=== PATIENT | male | born 1980 | race Caucasian/White ===

== ENCOUNTER 2019-06-22 15:12 | Emergency (ER) | payer OTHER, SELFPAY ==
[2018-08-01 10:20] VITALS: BMI 25.5
[2019-06-22 15:13] VITALS: BP 146/107; PULSE 74; RESP 16; TEMP 36.4; O2SAT 97; BMI 28.9
--- NOTE | 2019-06-22 15:19 | ED.RN ---
PT'S VICE PRESIDENT [employer]ERS[employer], ISIDRO TIPTON, STATES DRUG SCREENING IS NOT NECESSARY.
--- NOTE | 2019-06-22 16:03 | ED.DCSUM_ITS ---
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 He performed BLS before the ambulance crew arrived, he performed [id number] in the process, and CPR. He is here because of the exposure during the national coronavirus pandemic. He is healthy and asymptomatic. Past Medical History - Allergies and Home Meds Allergies/Adverse Reactions: Allergies No Known Allergies Allergy (Verified 06/22/19 15:13) Primary Care Physician: Ian Conti MD [Primary Care Provider] - Past Medical History: None Lives: With Family Smoking Status: Never smoker Review of Systems General: Denies: Chills, Fever, Sweats ENT: Reports: - - no mouth pain. Denies: Rhinorrhea, Sore throat Skin: Denies: Rash, Wounds Neurological: Denies: Headache, Weakness, Numbness Physical Exam Vital Signs/Narrative: Vital Signs Temp Pulse Resp BP Pulse Ox 06/22/19 15:13 97.6 F L 74 16 146/107 H 97 Inital Vital Signs reviewed: Yes General: Well nourished, Well developed, No Acute Distress Head: Normocephalic, Atraumatic Eyes: Perrl, EOMI ENT: Moist mucous membranes, No rhinorrhea, - - Oropharynx normal Neck: Supple Skin: Normal color, No rash, No Trauma Neurological: Alert, Oriented x3, Cranial nerves II-XII grossly intact, Normal Strength, Normal Sensation Psychological: Normal affect, Normal Mood Diagnostic/Tx/Re-eval - Medical Decision Making Initial exposure testing will be obtained, testing of the source patient will also be obtained including a COVID test. That is not indicated for this patient at this time. He will follow-up with scroll kit. 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 ED Disposition - Plan for ED Patient: Disposition: Home or Assisted Living Diagnosis: Patient exposure to body fluids Instructions: ED Body Fluid Exposure Not Healthcare Worker Referrals: Ian Conti MD [Primary Care Provider] - [facility] [GROUP OF PHYSICIANS] - 1-2 Weeks
[2019-06-22 16:27] VITALS: BP 144/97; PULSE 76; RESP 17; O2SAT 98
[2019-06-22 17:56] LABS: HIV - WCH Non-Reactive (Nonreactive); Hepatitis B Surface Antibody Reactive; Hepatitis B Surface Antigen Non-Reactive (Nonreactive); Hepatitis C Antibody Non-Reactive (Nonreactive)
== END 2019-06-22 16:31 | disposition home or self-care (01) ==
PROVIDERS: Emergency Provider Emergency Medicine; PCP Family Medicine
DX: Z77.21 Contact with and (suspected) exposure to potentially hazardous body fluids (principal)
CPT/HCPCS: 86703; 86706; 86803; 87340; 99282

== ENCOUNTER → 2019-06-27 12:57 | Outpatient (CLI) | payer OTHER, SELFPAY ==
[2019-06-22 15:13] VITALS: BMI 28.9
== END ==
PROVIDERS: Referring Provider Family Medicine; Visit Provider Family Medicine
DX: G47.10 Hypersomnia, unspecified (principal)
CPT/HCPCS: 95806

== ENCOUNTER → 2020-01-20 | Outpatient (CLI) | payer OTHER, SELFPAY | END | disposition home or self-care (01) | LOC: LABSPEC 10:11 | PROVIDERS: PCP Family Medicine; Referring Provider Family Medicine; Visit Provider Family Medicine | DX: U07.1 COVID-19 (principal) | CPT/HCPCS: 87635; C9803; U0003 ==

== ENCOUNTER → 2020-11-25 09:29 | Outpatient (CLI) | payer OTHER, SELFPAY ==
--- NOTE | 2020-11-25 09:33 | RAD_ITS ---
STUDY: X-RAY - LEFT KNEE REASON FOR EXAM: Male, 40 years old. Knee pain. TECHNIQUE: 4 view(s) of the knee. COMPARISON: None. FINDINGS: Normal visualized distal femur. Normal visualized proximal tibia and fibula. Normal proximal tibiofibular articulation. Normal medial femorotibial compartment. Normal lateral femorotibial compartment. Normal patellofemoral articulation. The soft tissue structures are unremarkable. RAD/Knee 4 or More Views IMPRESSION: Normal x-ray examination of the knee. Electronically Signed: Jonh Cardoza MD at 11:41 EDT , Service support ,
== END ==
PROVIDERS: PCP Family Medicine; Referring Provider Family Medicine; Visit Provider Family Medicine
DX: M67.52 Plica syndrome, left knee (principal)
CPT/HCPCS: 73564

== ENCOUNTER → 2021-07-28 | Outpatient (CLI) | payer OTHER, SELFPAY ==
[2021-07-28 17:48] LABS: ALB/GLOB Ratio 1.4 RATIO (0.9-2.4); AST(SGOT) 11 U/L (15-37); Alanine Aminotransfer ALT/SGPT 20 U/L (16-61); Alkaline Phosphatase 33 U/L (45-117); Anion Gap 6 (5-15); BUN 16 mg/dL (7-18); BUN/Creat Ratio 13.8 RATIO (10-20); Calcium,Total 8.9 mg/dL (8.5-10.1); Chloride 107 mmol/L (98-107); Creatinine, Serum 1.16 mg/dL (0.70-1.30); EST Glomerular Filtration Rate 74 mL/min (>60); Est Glom Filt Rate - Afr Amer 90 mL/min (>60); Globulin 2.9 g/dL (2.2-4.2); Glucose 112 mg/dL (74-106); Magnesium 2.1 mg/dL (1.6-2.6); Potassium 3.7 mmol/L (3.5-5.1); Protein, Total 6.9 g/dL (6.4-8.2); Sodium Level 142 mmol/L (136-145)
[2021-08-01 16:08] LABS: Endomysial Antibody IgA Negative (Negative)
[2021-08-01 17:15] LABS: Immunoglobulin A 148 mg/dL (90-386); t-Transglutaminase IgA <2 U/mL (0-3)
[2021-08-02 19:59] LABS: Fats, Neutral Normal (.); Fats, Total Normal (.)
== END | disposition home or self-care (01) ==
LOC: MFPLAB 14:34
PROVIDERS: PCP Family Medicine; Referring Provider Family Medicine; Visit Provider Family Medicine
DX: R19.7 Diarrhea, unspecified (principal)
CPT/HCPCS: 36415; 80053; 82705; 82784; 83516; 83630; 83735; 86255; 87177; 87209; 87493; 87506

== ENCOUNTER → 2022-08-01 | Outpatient (CLI) | payer OTHER, SELFPAY ==
[2022-08-01 18:08] LABS: Hematocrit 43.2 % (40-54); Hemoglobin 14.8 g/dL (13.0-16.5); Mean Corp Hgb Conc 34.3 g/dL (32-36); Mean Corpuscular Hgb 30.6 pg (27.0-32.0); Mean Corpuscular Volume 89.4 fL (80-94); Mean Platelet Vol. 9.5 fl (6.2-12.0); Platelet Count 277 K/mm3 (150-450); RBC Distribution Width CV 12.3 % (11.6-14.6); Red Blood Count 4.83 M/mm3 (4.6-6.2); White Blood Count 4.9 K/mm3 (4.4-11.0)
[2022-08-01 19:05] LABS: ALB/GLOB Ratio 1.3 RATIO (0.9-2.4); AST(SGOT) 17 U/L (15-37); Alanine Aminotransfer ALT/SGPT 19 U/L (16-61); Albumin, Serum 4.2 g/dL (3.2-5.0); Alkaline Phosphatase 33 U/L (45-117); Anion Gap 6 (5-15); BUN 16 mg/dL (7-18); Calcium,Total 8.9 mg/dL (8.5-10.1); Chloride 106 mmol/L (98-107); Cholesterol 194 mg/dL (200); EST Glomerular Filtration Rate 88 mL/min (>60); Est Glom Filt Rate - Afr Amer 106 mL/min (>60); Ferritin 110 ng/mL (26-388); Globulin 3.3 g/dL (2.2-4.2); Glucose 90 mg/dL (74-106); High Density Lipoprotein 62 mg/dL; Iron 105 ug/dL (65-175); Iron Binding Capacity,Total 335 ug/dL (250-450); PERCENT IRON SATURATION 31.3 % (15.0-55.0); Potassium 3.7 mmol/L (3.5-5.1); Protein, Total 7.5 g/dL (6.4-8.2); Sodium Level 139 mmol/L (136-145); Thyroid Stim Hormone (TSH) 1.08 uIU/mL (0.358-3.74); Triglycerides 61 mg/dL; Very Low Density Lipoprotein 12 mg/dL (5-40)
[2022-08-01 19:58] LABS: Vitamin B12 273 pg/mL (211-911); Vitamin D,25 Hydroxy 64.9 ng/mL
== END | disposition home or self-care (01) ==
LOC: MFPLAB 15:49
PROVIDERS: PCP Family Medicine; Visit Provider Physician Assistant
DX: R53.83 Other fatigue (principal); E66.9 Obesity, unspecified
CPT/HCPCS: 36415; 80053; 80061; 82306; 82607; 82728; 82746; 83525; 83540; 83550; 84443; 85027

== ENCOUNTER 2022-10-17 10:58 | Outpatient (CLI) | payer OTHER, SELFPAY ==
[2022-10-17 11:09] LABS: Bacteria 0 SEEN /hpf (None Seen); Mucous, Urine 0 SEEN /hpf (<or=2+); White Blood Cells 0 SEEN /hpf (0-5)
[2022-10-17 12:14] LABS: Color, Urine Yellow (Yellow); Glucose, Dipstick Normal (Normal); Ketone-Dipstick Negative (Negative); Leukocyte Esterase-Dipstick Negative /ul (Negative); Nitrite-Dipstick Negative (Negative); Occult Blood-Urine 25 /ul (Negative); Protein-Dipstick Negative (Negative); Urine Bilirubin Dipstick Negative (Negative); Urine Clarity Sl. Cloudy (Clear); Urine Urobilinogen Normal (Normal)
[2022-10-17 12:22] LABS: Red Blood Cells-Urine 0-5 SEEN /hpf (0-5); Squamous Epithelial Cells - UA 0-5 SEEN /hpf (0-5)
== END 2022-10-17 23:59 | disposition home or self-care (01) ==
LOC: LABSPEC 11:06
PROVIDERS: PCP Family Medicine; Visit Provider Family Medicine
DX: Z00.00 Encounter for general adult medical examination without abnormal findings (principal); R30.9 Painful micturition, unspecified; R36.1 Hematospermia
CPT/HCPCS: 81001; 87086; 87491; 87591

== ENCOUNTER 2022-10-20 10:12 | Outpatient (CLI) | payer OTHER, SELFPAY | END 2022-10-20 23:59 | disposition home or self-care (01) | PROVIDERS: PCP Family Medicine; Visit Provider Family Medicine | DX: N45.1 Epididymitis (principal); R36.1 Hematospermia | CPT/HCPCS: 87491; 87591 ==

== ENCOUNTER → 2022-10-26 | Outpatient (CLI) | payer OTHER, SELFPAY ==
--- NOTE | 2022-10-26 16:42 | RAD_ITS ---
INDICATION: sternoclavicular pain (left) EXAMINATION/TECHNIQUE: X-RAY - XR Sternoclavicular Joint(s) Min 3 Views 3 IMAGES COMPARISON: None. LIMITATIONS: None. FINDINGS: BONES: No fracture demonstrated. JOINTS: No dislocation. SOFT TISSUES: Unremarkable. RAD/S-C Jts Min 3 Views IMPRESSION: No acute findings. Electronically Signed: Niki Trujillo MD at 5:10 EDT ,
--- NOTE | 2022-10-26 16:45 | RAD_ITS ---
INDICATION: PAIN EXAMINATION/TECHNIQUE: X-RAY - XR Spine Cervical 4 or 5 Views COMPARISON: None. FINDINGS: The vertebral bodies are normal height. No definite fracture demonstrated. No subluxation. C1-C2 alignment is maintained. Mild disc space narrowing and posterior osteophytes C3-C6, most pronounced at C3-4. Mild bilateral neural foraminal encroachment at C3-C4 by posterior osteophytes. Prevertebral soft tissues appear unremarkable RAD/Cerv Spine 4 or 5 Views IMPRESSION: No evidence of fracture or subluxation. Degenerative discogenic disease with likely mild neural foraminal encroachment at C3-4. Electronically Signed: Niki Trujillo MD at 4:04 EDT ,
[2022-10-26 18:20] LABS: ALB/GLOB Ratio 1.2 RATIO (0.9-2.4); AST(SGOT) 13 U/L (15-37); Alanine Aminotransfer ALT/SGPT 23 U/L (16-61); Albumin, Serum 4.1 g/dL (3.2-5.0); Alkaline Phosphatase 33 U/L (45-117); Anion Gap 4 (5-15); BUN 22 mg/dL (7-18); BUN/Creat Ratio 20.2 RATIO (10-20); CRP < 2.90 mg/L (0.0-3.0); Calcium,Total 8.6 mg/dL (8.5-10.1); Chloride 109 mmol/L (98-107); Creatinine, Serum 1.09 mg/dL (0.70-1.30); EST Glomerular Filtration Rate 79 mL/min (>60); Est Glom Filt Rate - Afr Amer 96 mL/min (>60); Globulin 3.3 g/dL (2.2-4.2); Glucose 91 mg/dL (74-106); Potassium 3.5 mmol/L (3.5-5.1); Protein, Total 7.4 g/dL (6.4-8.2); Sodium Level 140 mmol/L (136-145); Thyroid Stim Hormone (TSH) 1.27 uIU/mL (0.358-3.74)
[2022-10-26 18:27] LABS: Absolute Lymphocyte Count 1.65 X10^3/uL (0.83-4.51); Absolute Neutrophil Count 2.5 X10^3/uL (2.0-7.7); Basophil# 0.03 X10^3/uL; Basophil% 0.6 % (0-1); Eosinophils% 4.1 % (0-5); Hematocrit 41.4 % (40-54); Hemoglobin 14.1 g/dL (13.0-16.5); Lymphocyte # 1.65 X10^3/ul (0.83-4.51); Lymphocyte % 34.2 % (19-41); Mean Corp Hgb Conc 34.1 g/dL (32-36); Mean Corpuscular Hgb 30.4 pg (27.0-32.0); Mean Corpuscular Volume 89.2 fL (80-94); Mean Platelet Vol. 9.6 fl (6.2-12.0); Monocyte# 0.43 X10^3/uL; Monocyte% 8.9 % (0-10); NRBC Flagged by Analyzer 0 % (0-5); Neutrophil # 2.51 X10^3/uL (2.7-7.7); Platelet Count 260 K/mm3 (150-450); RBC Distribution Width SD 39.3 fl (35.1-43.9); Red Blood Count 4.64 M/mm3 (4.6-6.2); White Blood Count 4.8 K/mm3 (4.4-11.0)
[2022-10-26 18:46] LABS: Erythrocyte Sedimentation Rate 3 mm/hr (0-20)
[2022-10-26 18:47] LABS: Vitamin B12 292 pg/mL (211-911); Vitamin D,25 Hydroxy 52.5 ng/mL
[2022-10-28 10:08] LABS: Lyme Scn Total Ab w/Rflx Negative (Negative)
[2022-10-30 14:08] LABS: ANTINUCLEAR ANTIBODIES DIRECT Negative (Negative)
== END | disposition home or self-care (01) ==
LOC: MTLAB 16:21
PROVIDERS: PCP Family Medicine; Visit Provider Family Medicine
DX: R76.8 Other specified abnormal immunological findings in serum (principal); M54.2 Cervicalgia; M25.519 Pain in unspecified shoulder; R41.89 Other symptoms and signs involving cognitive functions and awareness
CPT/HCPCS: 36415; 71130; 72050; 80053; 82306; 82607; 84403; 84443; 85025; 85652; 86038; 86140; 86200; 86431; 86618

== ENCOUNTER → 2022-12-26 | Outpatient (CLI) | payer OTHER, SELFPAY ==
--- NOTE | 2022-12-26 10:47 | RAD_ITS ---
STUDY: X-RAY CHEST REASON FOR EXAM: Male, 42 years old. Cough. TECHNIQUE: Frontal and lateral views of the chest on 3 images. COMPARISON: March 01, 2016. FINDINGS: Stable hyperinflation. Scattered healed parenchymal granulomatous calcifications. There is no demonstrated pleural abnormality. Normal size heart. Normal mediastinum and emily. Normal visualized pulmonary arteries. Normal visualized aortic arch and descending thoracic aorta. No abnormality of the visualized soft tissue structures of the upper abdomen. RAD/Chest PA and Lateral IMPRESSION: Stable hyperinflation with no acute or active cardiopulmonary disease. Electronically Signed: Jonh Cardoza MD at 14:24 EST ,
[2022-12-26 12:41] LABS: AST(SGOT) 14 U/L (15-37); Alanine Aminotransfer ALT/SGPT 33 U/L (16-61); Albumin, Serum 3.9 g/dL (3.2-5.0); Alkaline Phosphatase 38 U/L (45-117); Bilirubin, Direct 0.13 mg/dL (0.00-0.30); GGTP 24 U/L (15-85); Globulin 3.6 g/dL (2.2-4.2); Protein, Total 7.5 g/dL (6.4-8.2)
[2022-12-26 12:49] LABS: Hepatitis B Surface Antibody Reactive
[2022-12-26 17:47] LABS: Hepatitis B Surface Antigen Non-Reactive (Nonreactive)
== END | disposition home or self-care (01) ==
PROVIDERS: PCP Family Medicine; Referring Provider Family Medicine; Visit Provider Family Medicine
DX: R76.8 Other specified abnormal immunological findings in serum (principal); R05.9 Cough, unspecified
CPT/HCPCS: 36415; 71046; 80076; 82977; 86704; 86705; 86706; 86707; 87340; 87350

== ENCOUNTER → 2023-11-12 | Outpatient (CLI) | payer OTHER, SELFPAY ==
--- NOTE | 2023-11-12 10:55 | RAD_ITS ---
STUDY: X-RAY CHEST REASON FOR EXAM: Male, 43 years old. Persistent cough TECHNIQUE: PA and lateral views of the chest. COMPARISON: Comparison is made with prior study dated December 26, 2022. FINDINGS: The lungs are clear and expanded. There is no demonstrated pleural abnormality. Normal size heart. Normal mediastinum and emily. Normal visualized pulmonary arteries. Normal visualized aortic arch and descending thoracic aorta. Normal visualized thoracic spine. Normal visualized ribs, clavicles, and shoulders. There is no demonstrated abnormality of the visualized soft tissue structures of the upper abdomen. RAD/Chest PA and Lateral IMPRESSION: Normal x-ray examination of the chest. Electronically Signed: Gonzalo Harrison MD at 11:24 EDT ,
== END | disposition home or self-care (01) ==
LOC: MTRAD 10:52
PROVIDERS: PCP Family Medicine; Referring Provider Physician Assistant Surgical; Visit Provider Physician Assistant Surgical
DX: U09.9 Post COVID-19 condition, unspecified (principal); R05.3 Chronic cough
CPT/HCPCS: 71046

== ENCOUNTER 2023-12-27 09:37 | Emergency (ER) | payer OTHER, SELFPAY ==
[2023-12-27 09:39] VITALS: BP 143/92; PULSE 80; RESP 18; TEMP 36.6; O2SAT 99; BMI 27.4
--- NOTE | 2023-12-27 10:24 | RAD_ITS ---
STUDY: X-RAY - RIGHT HAND REASON FOR EXAM: Male, 43 years old. Foreign body thumb, cellulitis TECHNIQUE: 3 view(s) of the hand. COMPARISON: None. FINDINGS: Normal radiocarpal articulation. Normal distal radioulnar joint. Normal visualized carpal bones. Normal carpal articulations Normal carpometacarpal articulation of the thumb. Normal second through fifth carpometacarpal joints. Normal metacarpi. Normal metacarpophalangeal joint of the thumb. Normal interphalangeal joint of the thumb. Normal proximal and distal phalanges of the thumb. Normal metacarpophalangeal joints of the second through fifth fingers. Normal proximal and distal interphalangeal joints of the second through fifth fingers. Normal phalanges of the second through fifth fingers. No radiopaque foreign body is seen. RAD/Hand Min 3 Views IMPRESSION: No radiopaque foreign body is seen. Electronically Signed: Gonzalo Harrison MD at 11:27 [facility] ,
--- NOTE | 2023-12-27 10:24 | EX.ED.UPPERE ---
HPI History of Present Illness Chief Complaint: Wound Check Informant: patient Narrative Narrative: [id number] male insert foreign body right thumb. Filleting a for she felt the bone go through a week ago. He thought he removed it. Since then more swelling some discomfort some redness noted. Had some chills yesterday. Tetanus 3 years ago. He is not a diabetic. No allergies to medications. Tetanus Immunization: <5 years PFSH PFSH Home Medications ?Medication ?Instructions ?Recorded ?Last Taken ?Type lorazepam 1 mg tablet 1 mg PO PRN PRN Anxiety 03/03/15 Unknown History metoprolol tartrate 50 mg tablet 50 mg PO DAILY 03/03/15 Unknown History citalopram 10 mg tablet 10 mg PO DAILY 03/01/16 Unknown History azithromycin 250 mg tablet See Rx Instructions PO .COMPLEX #6 11/12/23 Unknown Rx tabs cephalexin 500 mg capsule 500 mg PO Q6 #40 CAPSULES 12/27/23 Unknown Rx sulfamethoxazole 800 1 tab PO BID #14 TABLETS 12/27/23 Unknown Rx mg-trimethoprim 160 mg tablet Allergy/AdvReac Type Severity Reaction Status Date / Time No Known Allergies Allergy Verified 12/27/23 09:38 Social History Smoking Status: Never smoker ROS ROS ED Constitutional Constitutional ED: Reports chills; Denies fever(s) or sweats Eyes Eyes: Denies change in vision ENT ENT ED: Denies dysphagia or sore throat Cardiovascular Cardiovascular: Denies chest pain, leg edema, palpitations or racing heartbeat Respiratory/Chest Respiratory/Chest: Denies cough, dyspnea or dyspnea on exertion Gastrointestinal Gastrointestinal: Denies abdominal pain, diarrhea, nausea or vomiting Genitourinary Genitourinary ED: Denies dysuria, hematuria or urinary frequency Musculoskeletal Musculoskeletal: Reports extremity pain; Denies back pain or neck pain Integumentary Denies rash or wounds Neurologic Neurologic: Denies headache(s), paresthesias or weakness EXAM Physical Exam Const Vital Signs: 12/27/23 09:39 Temperature 97.8 F Temperature Source Oral Pulse Rate 80 Respiratory Rate 18 Blood Pressure 143/92 H Blood Pressure Mean 109 Pulse Ox 99 Oxygen Delivery Method Room Air Positive well nourished and well developed General Appearance ED: well developed and NAD HEENT Reports moist mucous membranes normocephalic and atraumatic Eyes EOMs intact bilaterally and conjunctivae normal General Eye ED: Yes normal appearance of both eyes Neck no lymphadenopathy and supple General: Negative for tenderness Chest Wall Chest: Negative for tenderness Resp normal respiratory effort and normal air movement Effort and Inspection: symmetric chest movement; Negative for respiratory distress Cardio regular rate, regular rhythm and no murmurs Peripheral Pulses: pulses 2+ throughout GI normal to inspection, nondistended, normoactive bowel sounds and non-tender Palpation: Negative for guarding or rebound tenderness present Back/Spine no CVA tenderness and no thoracic nor lumbar tenderness Extremity normal to inspection General Extremety ED: Negative for edema or tenderness General Extremity: Negative for edema Neuro oriented x3 and no sensory deficits noted Sensorium / Orientation: awake and alert Skin Skin Narrative: Right hand/thumb: There is a wound middle proximal phalanx some induration. Mild redness to the thenar eminence. There is no streaking up the arm. No axillary lymphadenopathy. No swelling of the digit, no flex position. No flexor tendon pain. MDM MDM MDM Narrative Medical decision making narrative: Interventions / MDM: Differential diagnosis: Foreign body right thumb, cellulitis right thumb Diagnosis considered but do not suspect: 0 out of 4 Kanavel's sign for concern for flexor tenosynovitis. My EKG interpretation: N/A Imaging independently reviewed and interpreted by myself: Three-view x-ray right hand: No radiopaque foreign body. External documents reviewed: N/A Test considered but not ordered:N/A ED course: Patient increasing swelling pain over the last 3 days after fishbone injury. No streaking. X-ray ordered. There is no radiopaque foreign bodies. Attempted removal in the ED, upon injection there is mild pus with injection however none afterwards. There was small black eschar removed, was not the foreign body. Still concern for retained foreign body. Started on Keflex and Bactrim. He is given follow-up with plastic/hand Dr. Claudio. I relayed message to him for follow-up outpatient. Discussed return precautions with the patient. All questions were answered. Procedure note: Normal sterile conditions. Skin prepped with alcohol pads, 1% lidocaine 1 cc local injection into the wound. There is small pus from the wound. ChloraPrep cleanse of the wound. Hemostats used to graft the eschar, however this was not a foreign body with fishbone. I used a 11 blade for a straight incision vertically on the wound, bleeding, tourniquet with a rubber band was used. This was controlled. Hemostats again used, could not grasp any foreign bodies. This was cleansed with normal saline. Wound was flattened compared to presentation. Hemostasis achieved. Dressing placed by myself. Patient tolerated the procedure well. Re-evaluation: stable Disposition discussed with patient/family/significant other: Patient Case discussed with consulting clinician: N/A This note was generated with [employer] dictation software. It may contain incorrect words, spelling, and punctuation that were not noted in checking the note before signing. Discharge Plan Triage Chief Complaint: Wound Check ED Provider: Kirk Abdi Dx/Rx/DC Orders Clinical Impression: Foreign body of right thumb with infection, Puncture wound Instructions: ED Foreign Body Soft Tissue, ED Wound Check (Infection) Prescriptions: New sulfamethoxazole-trimethoprim 800-160 mg tablet 1 tab PO BID Qty: 14 0RF cephalexin 500 mg capsule 500 mg PO Q6 Qty: 40 0RF No Action azithromycin 250 mg tablet See Rx Instructions PO .COMPLEX Qty: 6 0RF Rx Instructions: take 500 mg today (day 1), then 250 mg for 4 days (days 2-5) PO metoprolol tartrate 50 MG tablet 50 mg PO DAILY lorazepam 1 MG tablet 1 mg PO PRN PRN (Reason: Anxiety) Patient Comments: take 1 tablet by mouth three times a day if needed citalopram 10 MG tablet 10 mg PO DAILY Primary Care Provider: Vito Joyner Referrals: Vito Joyner MD [Primary Care Provider] - Los Claudio MD [Med Staff - Active Staff] - 3-5 Days Activity Restrictions/Additional Instructions: Attempted removal of foreign body, none grossly seen. Presumed retained foreign body from history of fishbone injury. Take and finish antibiotic as prescribed. Follow-up with Dr. Claudio. You develop fevers or worsening symptoms, return to the ED for reevaluation. Print Language: Urdu Disposition Disposition: Home, Self Care Discharge Date/Time: 12/27/23 12:00
[2023-12-27] MEDS: Cephalexin 250 MG Capsule 500 MG PO (11:55)
[2023-12-27] MEDS: Smz/Tmp Ds Tablet 1 TABLET PO (11:56)
[2023-12-27 12:00] VITALS: BP 129/64; PULSE 69; RESP 15; TEMP 36.2; O2SAT 100
== END 2023-12-27 12:00 | disposition home or self-care (01) ==
PROVIDERS: Emergency Provider Emergency Medicine; PCP Family Medicine; Visit Provider Emergency Medicine
DX: S61.041A Puncture wound with foreign body of right thumb without damage to nail, initial encounter (principal); W45.8XXA Other foreign body or object entering through skin, initial encounter; Y93.G1 Activity, food preparation and clean up
CPT/HCPCS: 10120; 73130; 99283

== ENCOUNTER → 2024-03-12 | Outpatient (CLI) | payer OTHER, SELFPAY ==
[2024-03-12 18:18] LABS: ALB/GLOB Ratio 1.2 RATIO (0.9-2.4); AST(SGOT) 21 U/L (15-37); Alanine Aminotransfer ALT/SGPT 28 U/L (16-61); Albumin, Serum 3.9 g/dL (3.2-5.0); Alkaline Phosphatase 32 U/L (45-117); Anion Gap 6 (5-15); BUN 15 mg/dL (7-18); BUN/Creat Ratio 16.9 RATIO (10-20); CRP 7.64 mg/L (0.0-3.0); Calcium,Total 8.5 mg/dL (8.5-10.1); Chloride 105 mmol/L (98-107); Creatinine, Serum 0.89 mg/dL (0.70-1.30); EST Glomerular Filtration Rate 100 mL/min (>60); Est Glom Filt Rate - Afr Amer 120 mL/min (>60); Ferritin 112 ng/mL (26-388); Globulin 3.3 g/dL (2.2-4.2); Glucose 84 mg/dL (74-106); Iron 80 ug/dL (65-175); Potassium 3.5 mmol/L (3.5-5.1); Protein, Total 7.2 g/dL (6.4-8.2); Sodium Level 140 mmol/L (136-145); Uric Acid 4.5 mg/dL (3.5-7.2)
[2024-03-12 18:22] LABS: Absolute Lymphocyte Count 1.49 X10^3/uL (0.83-4.51); Absolute Neutrophil Count 1.6 X10^3/uL (2.0-7.7); Basophil# 0.02 X10^3/uL; Basophil% 0.6 % (0-1); Eosinophil# 0.11 X10^3/uL; Eosinophils% 3.1 % (0-5); Erythrocyte Sedimentation Rate 4 mm/hr (0-20); Hematocrit 39.8 % (40-54); Hemoglobin 13.7 g/dL (13.0-16.5); Lymphocyte # 1.49 X10^3/ul (0.83-4.51); Lymphocyte % 41.9 % (19-41); Mean Corp Hgb Conc 34.4 g/dL (32-36); Mean Corpuscular Hgb 29.9 pg (27.0-32.0); Mean Corpuscular Volume 86.9 fL (80-94); Mean Platelet Vol. 9.2 fl (6.2-12.0); Monocyte# 0.33 X10^3/uL; Monocyte% 9.3 % (0-10); NRBC Flagged by Analyzer 0 % (0-5); Neutrophil % 44.8 % (47-70); Platelet Count 280 K/mm3 (150-450); RBC Distribution Width CV 12.1 % (11.6-14.6); RBC Distribution Width SD 38.6 fl (35.1-43.9); Red Blood Count 4.58 M/mm3 (4.6-6.2); White Blood Count 3.6 K/mm3 (4.4-11.0)
[2024-03-12 18:56] LABS: HIV - WCH Non-Reactive (Nonreactive)
[2024-03-14 15:07] LABS: PROEL- A/G Ratio 1.3 (0.7-1.7); PROEL- Albumin 3.8 g/dL (2.9-4.4); PROEL- Alpha-1 Globulin 0.3 g/dL (0.0-0.4); PROEL- Alpha-2 Globulin 0.8 g/dL (0.4-1.0); PROEL- Beta Globulin 0.9 g/dL (0.7-1.3); PROEL- Globulin, Total 2.9 g/dL (2.2-3.9); PROEL- TOTAL PROTEIN 6.7 g/dL (6.0-8.5); PROEL-M-Spike Comment: g/dL (Not Observed)
[2024-03-14 16:08] LABS: ANTINUCLEAR ANTIBODIES DIRECT Negative (Negative)
== END | disposition home or self-care (01) ==
PROVIDERS: PCP Family Medicine; Referring Provider Family Medicine; Visit Provider Family Medicine
DX: M25.50 Pain in unspecified joint (principal); R53.83 Other fatigue; M79.89 Other specified soft tissue disorders
CPT/HCPCS: 36415; 80053; 82306; 82728; 83540; 84165; 84403; 84443; 84550; 85025; 85652; 86038; 86140; 86431; 86703

== ENCOUNTER → 2024-04-10 | Outpatient (CLI) | payer OTHER, SELFPAY ==
--- NOTE | 2024-04-10 10:37 | US_ITS ---
PROCEDURE: NONVASCULAR ULTRASOUND LIMITED/SOFT TISSUE REASON FOR EXAM: Left axillary swelling. Left upper extremity palpable lump. TECHNIQUE: Real-time grayscale and color flow imaging was performed along with routine image documentation. COMPARISON: None. FINDINGS: A heterogeneous, well-circumscribed subcutaneous mass is noted at the focal area of swelling in the axilla measuring 4.5 x 2.4 x 1.7 cm. Small lymph nodes are also seen in the area of the palpable lump measuring 0.9 x 0.7 x 0.4 cm and 1.0 x 0.8 x 0.4 cm. No abnormal vascularity. US/Ext Non Vasc Limited/Soft Tiss IMPRESSION: 1. Heterogeneous well-circumscribed mass at the site of left axillary swelling consistent with lipoma. 2. Small lymph nodes are noted in the axilla. Reading Location: [place] [id number]
== END | disposition home or self-care (01) ==
LOC: US 10:34
PROVIDERS: PCP Family Medicine; Referring Provider Family Medicine; Visit Provider Family Medicine
DX: M79.89 Other specified soft tissue disorders (principal)
CPT/HCPCS: 76882